=== PATIENT | male | born 1980 | race Caucasian/White ===

== ENCOUNTER 2019-02-26 22:05 | Emergency (ER) | payer BC ==
--- NOTE | 2019-02-26 22:35 | ERPHSYRPT ---
- History of Present Illness Time Seen by Provider: 02/26/19 22:27 Historian: patient Exam Limitations: no limitations Patient Subjective Stated Complaint: pt is alert and oriented. pt comes in with complaint of chest pressure. pt states his pressure started a couple hours ago while he was cooking dinner. pt states he has felt slightly nauseous. pt denies vomiting, lightheadedness, dizziness, diaphoresis, sob, or pain/pressure radiating anywhere. radial pulses strong and equal. pt skin pwd. no edema. normal sinus rhythm on the monitor. Triage Nursing Assessment: see above Physician History: 39-year-old white male with history of high blood pressure arrives with complaint of feeling pressure in his anterior chest pressure in his neck symptoms which occurred while he was cooking dinner approximately 2 hours ago. He states that he has no nausea no vomiting no shortness of breath. He states he took one full size baby aspirin. Past medical history includes high blood pressure past surgical history includes right rotator cuff surgery, left shoulder surgery social history occasional alcohol use. . Timing/Duration: today (2 hours prior to arrival) Activities at Onset: other (cooking dinner) Quality: pressure Location: substernal Chest Pain Radiation: neck Severity of Pain-Max: moderate Severity of Pain-Current: mild Modifying Factors: Improves With: nothing Associated Symptoms: No nausea, No vomiting, No palpitations, No heartburn, No abdominal pain, No shortness of breath, No hurts to breathe, No diaphoresis, No chills, No fever, No fatigue, No weakness, No swelling/lump in chest, No syncope , No rash, No headache, No dizziness, No edema, No back pain Prior Chest Pain/Cardiac Workup: no prior chest pain Nitro Today/Relief: no nitro taken today Aspirin Treatment Today: 325 mg x 1, provided at home Allergies/Adverse Reactions: No Known Drug Allergies Allergy (Unverified 02/26/19 22:16) Home Medications: Fluoxetine HCl 10 mg [Prozac 10 mg] 10 mg PO DAILY 02/26/19 [History] Phentermine HCl 37.5 mg PO DAILY 02/26/19 [History] Immunizations Up to Date: Yes - Review of Systems Constitutional: No Fever, No Chills Eyes: No Symptoms Ears, Nose, & Throat: No Symptoms Respiratory: No Cough, No Dyspnea Cardiac: Chest Pain (pressure and chestpressure in chest) Abdominal/Gastrointestinal: No Abdominal Pain, No Nausea, No Vomiting, No Diarrhea Genitourinary Symptoms: No Dysuria Musculoskeletal: No Back Pain, No Neck Pain Skin: No Rash Neurological: No Dizziness, No Focal Weakness, No Sensory Changes Psychological: No Symptoms Endocrine: No Symptoms All Other Systems: Reviewed and Negative - Past Medical History Pertinent Past Medical History: Yes Neurological History: No Pertinent History ENT History: No Pertinent History Cardiac History: Hypertension Respiratory History: No Pertinent History Endocrine Medical History: No Pertinent History Musculoskeletal History: No Pertinent History GI Medical History: No Pertinent History History: No Pertinent History Psycho-Social History: No Pertinent History Male Reproductive Disorders: No Pertinent History Other Medical History: stopped taking bp medicine 2 years ago 60mg propranolol - Past Surgical History Past Surgical History: Yes Neuro Surgical History: No Pertinent History Cardiac: No Pertinent History Respiratory: No Pertinent History Gastrointestinal: No Pertinent History Genitourinary: No Pertinent History Musculoskeletal: Orthopedic Surgery Male Surgical History: No Pertinent History Other Surgical History: right rotator cuff repair, left shoulder surgery. - Social History Smoking Status: Former smoker Drug Use: none - Nursing Vital Signs Nursing Vital Signs: Initial Vital Signs Temperature 97.8 F 02/26/19 22:07 Pulse Rate 97 H 02/26/19 22:07 Respiratory Rate 18 02/26/19 22:07 Blood Pressure 141/96 02/26/19 22:07 O2 Sat by Pulse Oximetry 98 02/26/19 22:07 Pain Scale Pain Intensity 4 - Physical Exam General Appearance: no apparent distress, alert Eye Exam: PERRL/EOMI, eyes nml inspection Ears, Nose, Throat Exam: normal ENT inspection, moist mucous membranes Neck Exam: normal inspection, non-tender, supple, full range of motion Respiratory Exam: normal breath sounds, lungs clear, No respiratory distress Cardiovascular Exam: regular rate/rhythm, normal heart sounds, capillary refill <2 sec Gastrointestinal/Abdomen Exam: soft, No tenderness, No mass Back Exam: normal inspection, No CVA tenderness, No vertebral tenderness Extremity Exam: normal inspection Neurologic Exam: alert, oriented x 3, cooperative, director of operations II-XII nml as tested, normal mood/affect, sensation nml, No motor deficits Skin Exam: normal color, warm, dry SpO2 Interpretation: normal (98%) SpO2: 98 - Course Nursing assessment & vital signs reviewed: Yes EKG Interpreted by Me: RATE (91 bpm), Sinus Rhythm, NORMAL AXIS, Other (EKG: Sinus rhythm, 91 bpm, normal axis, no acute ST or T wave changes, normal EKG) - Radiology Exams Chest X-ray Interpretation: Interpreted by me (chest x-ray: No acute disease process noted) Ordered Tests: Active Orders 24 hr Category Date Time Status Business Services Analyst STAT Care 02/26/19 22:31 Active EKG-ER Only STAT Care 02/26/19 22:30 Active IV Insertion STAT Care 02/26/19 22:30 Active Pulse Oximetry (ED) STAT Care 02/26/19 22:30 Active CHEST 1 VIEW (PORTABLE) Stat Exams 02/27/19 00:10 Taken AMYLASE Stat Lab 02/26/19 23:18 Completed CBC W DIFF Stat Lab 02/26/19 23:18 Completed CMP Stat Lab 02/26/19 23:18 Completed D-DIMER QUANTITATION Stat Lab 02/26/19 23:18 Completed LIPASE Stat Lab 02/26/19 23:18 Completed TROPONIN Q3H Lab 02/26/19 22:45 Completed TROPONIN Q3H Lab 02/27/19 01:54 Completed TROPONIN Q3H Lab 02/27/19 04:45 Ordered TROPONIN Q3H Lab 02/27/19 07:45 Ordered TROPONIN Q3H Lab 02/27/19 10:45 Ordered Lab/Rad Data: Laboratory Result Diagrams 02/26/19 23:18 02/26/19 23:18 Laboratory Results 02/27/19 02/26/19 02/26/19 Range/Units 01:54 23:18 23:18 WBC (4.0-10.5) K/mm3 RBC (4.1-5.6) M/mm3 Hgb (12.5-18.0) gm/dl Hct (42-50) % MCV (78-100) fl MCH (26-32) pg MCHC (32-36) g/dl RDW (11.5-14.0) % Plt Count (150-450) K/mm3 MPV (6-9.5) fl Gran % (36.0-66.0) % Eos # (Auto) (0-0.5) Absolute Lymphs (auto) (1.0-4.6) Absolute Monos (auto) (0.0-1.3) Lymphocytes % (24.0-44.0) % Monocytes % (0.0-12.0) % Eosinophils % (0.00-5.0) % Basophils % (0.0-0.4) % Absolute Granulocytes (1.4-6.9) Basophils # (0-0.4) D-Dimer 296 (215-500) ng/mL Sodium (137-145) mmol/L Potassium (3.5-5.1) mmol/L Chloride (98-107) mmol/L Carbon Dioxide (22-30) mmol/L Anion Gap (5-15) MEQ/L BUN (9-20) mg/dL Creatinine (0.66-1.25) mg/dL Estimated GFR ML/MIN Glucose (74-106) mg/dL Calcium (8.4-10.2) mg/dL Total Bilirubin (0.2-1.3) mg/dL AST (17-59) U/L ALT (0-50) U/L Alkaline Phosphatase (38-126) U/L Troponin I < 0.012 (0.000-0.034) ng/mL Serum Total Protein (6.3-8.2) g/dL Albumin (3.5-5.0) g/dL Amylase 82 (30-110) U/L Lipase 173 (23-300) U/L 02/26/19 02/26/19 02/26/19 Range/Units 23:18 23:18 22:45 WBC 8.3 (4.0-10.5) K/mm3 RBC 5.38 (4.1-5.6) M/mm3 Hgb 16.3 (12.5-18.0) gm/dl Hct 48.2 (42-50) % MCV 89.6 (78-100) fl MCH 30.2 (26-32) pg MCHC 33.8 (32-36) g/dl RDW 13.2 (11.5-14.0) % Plt Count 289 (150-450) K/mm3 MPV 8.7 (6-9.5) fl Gran % 50.2 (36.0-66.0) % Eos # (Auto) 0.25 (0-0.5) Absolute Lymphs (auto) 2.89 (1.0-4.6) Absolute Monos (auto) 0.94 (0.0-1.3) Lymphocytes % 34.9 (24.0-44.0) % Monocytes % 11.4 (0.0-12.0) % Eosinophils % 3.0 (0.00-5.0) % Basophils % 0.5 (0.0-0.4) % Absolute Granulocytes 4.15 (1.4-6.9) Basophils # 0.04 (0-0.4) D-Dimer (215-500) ng/mL Sodium 141 (137-145) mmol/L Potassium 3.8 (3.5-5.1) mmol/L Chloride 100 (98-107) mmol/L Carbon Dioxide 32 H (22-30) mmol/L Anion Gap 12.8 (5-15) MEQ/L BUN 15 (9-20) mg/dL Creatinine 0.83 (0.66-1.25) mg/dL Estimated GFR > 60.0 ML/MIN Glucose 98 (74-106) mg/dL Calcium 9.6 (8.4-10.2) mg/dL Total Bilirubin 0.50 (0.2-1.3) mg/dL AST 30 (17-59) U/L ALT 33 (0-50) U/L Alkaline Phosphatase 46 (38-126) U/L Troponin I < 0.012 (0.000-0.034) ng/mL Serum Total Protein 7.7 (6.3-8.2) g/dL Albumin 4.3 (3.5-5.0) g/dL Amylase (30-110) U/L Lipase (23-300) U/L - Progress Progress: improved Air Movement: fair Progress Note: 02/27/19 02:26 Patient in no distress at this time. Troponin are normal 2 chest x-ray within normal limits. Patient with normal EKG. Blood pressure markedly improved. Will discharge. - Departure Departure Disposition: Home Clinical Impression: Chest pain Qualifiers: Chest pain type: unspecified Qualified Code(s): R07.9 - Chest pain, unspecified Condition: Fair Critical Care Time: No Referrals: JERZY ENGEL MD [Primary Care Provider] - Additional Instructions: Return home, rest. Follow-up with your family doctor. Return for acute distress or for severe symptoms or for any problems.
[2019-02-26 23:19] LABS: ALBUMIN 4.3 g/dL (3.5-5.0); BLOOD UREA NITROGEN 15 mg/dL (9-20); CHLORIDE 100 mmol/L (98-107); Calcium 9.6 mg/dL (8.4-10.2); Carbon Dioxide 32 mmol/L (22-30); Creatinine 1 0.83 mg/dL (0.66-1.25); Glucose 98 mg/dL (74-106); Potassium 3.8 mmol/L (3.5-5.1); SODIUM 141 mmol/L (137-145); Total Protein 7.7 g/dL (6.3-8.2)
[2019-02-26 23:20] LABS: ALKALINE PHOSPHATASE 46 U/L (38-126); SGOT/AST 30 U/L (17-59); SGPT/ALT 33 U/L (0-50)
[2019-02-26 23:22] LABS: ANION GAP 12.8 MEQ/L (5-15)
[2019-02-26 23:23] LABS: AMYLASE 82 U/L (30-110); LIPASE 173 U/L (23-300)
[2019-02-26 23:25] LABS: Hematocrit 48.2 % (42-50); Hemoglobin 16.3 gm/dl (12.5-18.0); Mean Cell Volume 89.6 fl (78-100); Mean Corpuscular Hemoglobin 30.2 pg (26-32); Mean Corpuscular Hgb Concent. 33.8 g/dl (32-36); Red Blood Count 5.38 M/mm3 (4.1-5.6); Red Cell Distribution Width 13.2 % (11.5-14.0); White Blood Count 8.3 K/mm3 (4.0-10.5)
[2019-02-26 23:26] LABS: BASOPHIL % 0.5 % (0.0-0.4); Basophil (Absolute #) 0.04 (0-0.4); Eosinophil (Absolute #) 0.25 (0-0.5); Granulocyte Absolute (ANC) 4.15 (1.4-6.9); Granulocytes % 50.2 % (36.0-66.0); Lymphocyte (Absolute #) 2.89 (1.0-4.6); Lymphocytes % 34.9 % (24.0-44.0); Mean Platelet Volume 8.7 fl (6-9.5); Monocyte (Absolute #) 0.94 (0.0-1.3); Monocytes % 11.4 % (0.0-12.0); Platelet Count 289 K/mm3 (150-450)
[2019-02-27 02:37] VITALS: BP 109/84; PULSE 72; O2SAT 96
--- NOTE | 2019-02-27 08:04 | XRAY ---
Indication: Chest pain. Comparison: None Portable chest demonstrates normal heart, lungs, and bony thorax.
== END 2019-02-27 02:45 | disposition home or self-care (01) ==
LOC: ED 22:05
DX: R07.89 Other chest pain (principal); I10 Essential (primary) hypertension
CPT/HCPCS: 36000; 36415; 71045; 80053; 82150; 83690; 84484; 85025; 85379; 93005; 93041; 99284

== ENCOUNTER 2021-09-11 11:06 | Day surgery (SDC) | payer OTHER ==
[2021-09-11] MEDS ORDERED: Depo-Medrol 40 MG/ML IM ONE (11:07)
[2021-09-11] MEDS ORDERED: LIDOCAINE HCL 2% 100 MG/5 ML IJ ONE (11:07)
[2021-09-11] MEDS ORDERED: DIPRIVAN 200 MG/20 ML IV ONE ×2 (12:04→12:10)
[2021-09-11] MEDS ORDERED: Lactated Ringers 1,000 ML IV ONE (12:29)
--- NOTE | 2021-09-11 14:12 | XRAY ---
Indication: Bilateral L4-S1 MBB. Intraoperative fluoroscopy provided for 19 seconds. Single digital spot image submitted for interpretation demonstrates posterior needle tips projecting over the expected left and right L4-S1 nerve roots. Correlate with intraoperative findings/report.
--- NOTE | 2021-09-11 15:27 | XRAY ---
19 seconds fluoroscopy time in surgery for bilateral L4-S1 MBB.
== END 2021-09-11 12:30 | disposition home or self-care (01) ==
LOC: SDC-PAIN 11:06
PROVIDERS: ATTEND Psychiatry & Neurology Pain Medicine
DX: M47.816 Spondylosis without myelopathy or radiculopathy, lumbar region (principal); Z79.891 Long term (current) use of opiate analgesic
CPT/HCPCS: 64493; 64494; 72020; 77002; J1030; J2704

== ENCOUNTER 2022-05-07 12:08 | Day surgery (SDC) | payer OTHER ==
[2022-05-07] MEDS ORDERED: Marcaine Mpf 0.5% Vial 30 Ml IJ ONE (12:09)
[2022-05-07] MEDS ORDERED: DIPRIVAN 200 MG/20 ML IV ONE ×2 (14:37→14:50)
[2022-05-07] MEDS ORDERED: Xylocaine-Mpf 2% 5 Ml Vial ONE (14:37)
[2022-05-07] MEDS ORDERED: Lactated Ringers 1,000 ML IV ONE ×2 (14:39→16:27)
--- NOTE | 2022-05-07 15:17 | XRAY ---
Indication: Bilateral L4-S1 MBB. Intraoperative fluoroscopy provided for 21 seconds. Single digital spot image submitted for interpretation demonstrates posterior needle tips projecting over the expected left and right L4-S1 nerve roots. Correlate with intraoperative findings/report.
--- NOTE | 2022-05-07 16:34 | XRAY ---
21 seconds fluoroscopy time in surgery for bilateral L4-S1 MBB.
== END 2022-05-07 15:04 | disposition home or self-care (01) ==
LOC: SDC-PAIN 12:08
PROVIDERS: ATTEND Psychiatry & Neurology Pain Medicine
DX: M47.816 Spondylosis without myelopathy or radiculopathy, lumbar region (principal); I10 Essential (primary) hypertension; Z79.899 Other long term (current) drug therapy
CPT/HCPCS: 64493; 64494; 72020; 77002; J2704

== ENCOUNTER 2022-06-18 14:28 | Day surgery (SDC) | payer OTHER ==
[2022-06-18] MEDS ORDERED: Marcaine Mpf 0.5% Vial 30 Ml IJ ONE (14:29)
[2022-06-18] MEDS ORDERED: Depo-Medrol 40 MG/ML IM ONE (14:29)
[2022-06-18] MEDS ORDERED: DIPRIVAN 200 MG/20 ML IV ONE (15:41)
[2022-06-18] MEDS ORDERED: Lactated Ringers 1,000 ML IV ONE (15:58)
--- NOTE | 2022-06-18 17:29 | XRAY ---
Indication: Bilateral SI joint injection. Intraoperative fluoroscopy provided for 17 seconds. 4 digital spot image submitted for interpretation demonstrates posterior needle tip projecting over the left and right SI joints. Correlate with intraoperative findings/report.
--- NOTE | 2022-06-18 17:46 | XRAY ---
17 seconds fluoroscopy time in surgery for injections of both SI joints.
== END 2022-06-18 16:10 | disposition home or self-care (01) ==
LOC: SDC-PAIN 14:28
PROVIDERS: ATTEND Psychiatry & Neurology Pain Medicine
DX: M46.1 Sacroiliitis, not elsewhere classified (principal); Z79.899 Other long term (current) drug therapy
CPT/HCPCS: 27096; 72202; 77002; J1030; J2704; G0260

== ENCOUNTER 2022-08-27 11:43 | Day surgery (SDC) | payer OTHER ==
[2022-08-27] MEDS ORDERED: BUPIVACAINE 0.5% VIAL IJ ONE (11:44)
[2022-08-27] MEDS ORDERED: Depo-Medrol 40 MG/ML IM ONE (11:44)
[2022-08-27] MEDS ORDERED: DIPRIVAN 200 MG/20 ML IV ONE (12:51)
[2022-08-27] MEDS ORDERED: Lactated Ringers 1,000 ML IV ONE (13:36)
--- NOTE | 2022-08-27 14:22 | XRAY ---
9 seconds fluoroscopy time in surgery for bilateral L4-S1 MBB.
--- NOTE | 2022-08-27 14:26 | XRAY ---
Indication: Bilateral L4-S1 MBB. Intraoperative fluoroscopy provided for 9 seconds. Single digital spot image submitted for interpretation demonstrates posterior needle tips projecting over the expected left and right L4-S1 nerve roots. Correlate with intraoperative findings/report.
== END 2022-08-27 13:25 | disposition home or self-care (01) ==
LOC: SDC-PAIN 11:43
PROVIDERS: ATTEND Psychiatry & Neurology Pain Medicine
DX: M47.816 Spondylosis without myelopathy or radiculopathy, lumbar region (principal); Z79.899 Other long term (current) drug therapy
CPT/HCPCS: 64493; 64494; 72020; 77002; J1030; J2704

== ENCOUNTER 2022-10-08 07:42 | Day surgery (SDC) | payer OTHER ==
[2022-10-08] MEDS ORDERED: BUPIVACAINE 0.5% VIAL IJ ONE (07:43)
[2022-10-08] MEDS ORDERED: LIDOCAINE HCL 1% 50 MG/5 ML VL PF IJ ONE (07:43)
[2022-10-08] MEDS ORDERED: Depo-Medrol 40 MG/ML IM ONE (07:43)
[2022-10-08] MEDS ORDERED: Pepcid 20 MG VIAL IV ONE (08:04)
[2022-10-08] MEDS ORDERED: DIPRIVAN 200 MG/20 ML IV ONE ×2 (09:02→09:12)
[2022-10-08] MEDS ORDERED: Xylocaine-Mpf 2% 5 Ml Vial ONE (09:08)
--- NOTE | 2022-10-08 09:53 | XRAY ---
Indication: Left L4-S1 RFA. Intraoperative fluoroscopy provided for 33 seconds. 3 digital spot images submitted for interpretation demonstrate posterior needle tips projecting over the expected left L4-S1 nerve roots. Correlate with intraoperative findings/report.
--- NOTE | 2022-10-08 09:55 | XRAY ---
33 seconds fluoroscopy time in surgery for left L4-S1 RFA.
[2022-10-08] MEDS ORDERED: Lactated Ringers 1,000 ML IV ONE (10:22)
== END 2022-10-08 09:30 | disposition home or self-care (01) ==
LOC: SDC-PAIN 07:42
PROVIDERS: ATTEND Psychiatry & Neurology Pain Medicine
DX: M47.816 Spondylosis without myelopathy or radiculopathy, lumbar region (principal); Z79.899 Other long term (current) drug therapy
CPT/HCPCS: 64635; 64636; 72100; 77002; J1030; J2001; J2704

== ENCOUNTER 2022-10-15 07:51 | Day surgery (SDC) | payer OTHER ==
[2022-10-15] MEDS ORDERED: BUPIVACAINE 0.5% VIAL IJ ONE (07:52)
[2022-10-15] MEDS ORDERED: Depo-Medrol 40 MG/ML IM ONE (07:52)
[2022-10-15] MEDS ORDERED: LIDOCAINE HCL 1% 50 MG/5 ML VL PF IJ ONE (07:52)
[2022-10-15] MEDS ORDERED: Pepcid 20 MG VIAL IV ONE (08:49)
[2022-10-15] MEDS ORDERED: Reglan 10 MG/2 ML ONE (08:49)
[2022-10-15] MEDS ORDERED: DIPRIVAN 200 MG/20 ML IV ONE (09:11)
--- NOTE | 2022-10-15 10:30 | XRAY ---
Indication: Right L4-S1 RFA. Intraoperative fluoroscopy provided for 28 seconds. 5 digital spot image submitted for interpretation demonstrates posterior needle tips projecting over the expected right L4-S1 nerve roots. Correlate with intraoperative findings/report.
--- NOTE | 2022-10-15 10:46 | XRAY ---
28 seconds of fluoroscopy was used in surgery for a right L4-S1 RFA.
[2022-10-15] MEDS ORDERED: Lactated Ringers 1,000 ML IV ONE (12:49)
== END 2022-10-15 09:45 | disposition home or self-care (01) ==
LOC: SDC-PAIN 07:51
PROVIDERS: ATTEND Psychiatry & Neurology Pain Medicine
DX: M47.816 Spondylosis without myelopathy or radiculopathy, lumbar region (principal); Z79.899 Other long term (current) drug therapy
CPT/HCPCS: 64635; 64636; 72100; 77002; J1030; J2001; J2704

== ENCOUNTER 2022-12-03 19:00 | Emergency (ER) | payer OTHER ==
[2022-12-03 19:56] LABS: Absolute Neutrophil Ct (ANC) 3.83 x10^3/uL (1.4-6.9); BASOPHIL % 0.6 % (0.0-0.4); Basophil (Absolute #) 0.04 x10^3/uL (0-0.4); Eosinophil % 1.9 % (0.00-5.0); Eosinophil (Absolute #) 0.13 x10^3/uL (0-0.5); Hematocrit 42.5 % (42-50); Hemoglobin 14.2 g/dL (12.5-18.0); IMMATURE GRAN # 0.01 x10^3u/L (0.00-0.03); IMMATURE GRAN % 0.1 % (0.00-0.4); Lymphocyte (Absolute #) 2.25 x10^3/uL (1.0-4.6); Lymphocytes % 32.8 % (24.0-44.0); Mean Corpuscular Hemoglobin 29.4 pg (26-32); Mean Corpuscular Hgb Concent. 33.4 g/dL (32-36); Mean Platelet Volume 8.5 fL (7.5-11.0); Monocyte (Absolute #) 0.61 x10^3/uL (0.0-1.3); Monocytes % 8.9 % (0.0-12.0); Neutrophil % 55.7 % (36.0-66.0); Platelet Count 240 x10^3/uL (150-450); Red Blood Count 4.83 x10^6/uL (4.1-5.6); Red Cell Distribution Width 12.6 % (11.5-14.0); White Blood Count 6.9 x10^3/uL (4.0-10.5)
[2022-12-03 20:12] LABS: ALBUMIN 4.7 g/dL (3.5-5.0); ALKALINE PHOSPHATASE 43 U/L (38-126); ANION GAP 15.1 MEQ/L (5-15); BLOOD UREA NITROGEN 17 mg/dL (9-20); CHLORIDE 104 mmol/L (98-107); Carbon Dioxide 26 mmol/L (22-30); Creatinine 1 0.81 mg/dL (0.66-1.25); EST GLOMERULAR FILTRATION RATE > 60.0 ML/MIN; Glucose 101 mg/dL (74-106); Potassium 4.7 mmol/L (3.5-5.1); SGOT/AST 28 U/L (17-59); SGPT/ALT 32 U/L (0-50); SODIUM 140 mmol/L (137-145); Total Protein 7.5 g/dL (6.3-8.2)
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
[2022-12-03 21:14] VITALS: PULSE 73
[2022-12-03 22:09] VITALS: BP 132/83
[2022-12-03 22:50] VITALS: O2SAT 94
--- NOTE | 2022-12-04 08:42 | XRAY ---
Indication: Headache, nausea, dizziness, confusion, and blurred vision. Multiple contiguous axial images obtained through the head without contrast. Comparison: August 25, 2011. Normal appearing brain parenchyma, ventricles, and bony calvarium. Visualized paranasal sinuses and mastoid air cells are clear. Impression: Continued normal CT head without contrast exam.
== END 2022-12-03 22:55 | disposition home or self-care (01) ==
LOC: ED 19:00
DX: G43.909 Migraine, unspecified, not intractable, without status migrainosus (principal); R20.2 Paresthesia of skin; Z87.820 Personal history of traumatic brain injury; I10 Essential (primary) hypertension; Z79.891 Long term (current) use of opiate analgesic; Z79.899 Other long term (current) drug therapy
CPT/HCPCS: 36415; 70450; 80053; 85025; 99283

== ENCOUNTER 2023-05-11 08:58 | Emergency (ER) | payer OTHER ==
[2023-05-11] MEDS ORDERED: TORAdol 30 mg Injection IV ONE (09:13)
[2023-05-11] MEDS ORDERED: Sodium Chloride 0.9% 1000 ML 1,000 ML IV STA (09:14)
[2023-05-11] MEDS ORDERED: Sodium Chloride 0.9% 1000 ML 1,000 ML ONE (09:14)
[2023-05-11] MEDS ORDERED: TORAdol 30 mg Injection ONE (09:14)
[2023-05-11] MEDS ORDERED: Zofran 4 MG/2 ML VIAL ONE (09:14)
[2023-05-11] MEDS ORDERED: Zofran 4 MG/2 ML VIAL IV ONE (09:15)
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
--- NOTE | 2023-05-11 10:15 | XRAY ---
Indication: Left flank pain. Multiple contiguous axial images obtained through the abdomen and pelvis without contrast using renal stone protocol. Comparison: None Lung bases demonstrate dependent atelectasis. Heart not enlarged. Distal left ureter demonstrates 3 mm calculus just proximal to UVJ. Proximal left ureter prominent up to 8mm along with mild hydronephrosis and minimal renal edema consistent with obstructive uropathy. Left kidney demonstrates at least 2 additional punctate calculi. No free fluid/air. Stomach distended with food/fluid. Noncontrasted stomach and bowel loops appear nonobstructed. Gallbladder mildly distended without gallstones. Mild diffuse scattered colonic fecal debris throughout. Remaining liver, gallbladder, pancreas, spleen, adrenal glands, kidneys, ureters, bladder, and aorta are unremarkable for noncontrast exam. Osseous structures intact with minimal/mild degenerative changes throughout the thoracolumbar spine. Small fatty left inguinal hernia. Impression: 1. 3 mm distal left ureter calculus producing partial obstruction as detailed. Additional left renal punctate calculi. 2. Distended gallbladder in this postprandial patient better evaluated with sonogram if clinically warranted. 3. Incidental mild diffuse fecal stasis, degenerative spondylosis, and fatty left inguinal hernia.
[2023-05-11 11:47] LABS: Appearance Clear (Clear); Bacteria None Seen /HPF (None Seen); Bilirubin Negative (Negative); Blood Large (Negative); Epithelial Cells Rare /HPF (None Seen); Glucose, Urine Negative (Negative); Ketones Negative (Negative); Leukocyte Esterase Trace (Negative); Nitrite Negative (Negative); Ph 6.5 (4.6-8.0); Protein,Urine Dip Trace (Negative)
[2023-05-11 11:48] LABS: ADD URINE CULTURE? YES (NO)
[2023-05-11 11:52] VITALS: O2SAT 98
[2023-05-11 11:54] VITALS: BP 104/64; PULSE 76
== END 2023-05-11 12:01 | disposition home or self-care (01) ==
LOC: ED 08:58
DX: N20.1 Calculus of ureter (principal); R10.9 Unspecified abdominal pain; R11.0 Nausea; I10 Essential (primary) hypertension; Z79.899 Other long term (current) drug therapy
CPT/HCPCS: 36000; 74176; 81001; 87086; 96374; 96375; 99284; J1885; J2405

== ENCOUNTER 2023-07-06 18:21 | Emergency (ER) | payer OTHER ==
[2023-07-06] MEDS ORDERED: BENADRYL 50 MG/ML IM ONE (18:41)
[2023-07-06] MEDS ORDERED: Sodium Chloride 0.9% 1000 ML 1,000 ML IV STA (18:41)
[2023-07-06] MEDS ORDERED: TORAdol 30 mg Injection IM ONE (18:41)
[2023-07-06 18:42] VITALS: TEMP 98.2
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
[2023-07-06] MEDS ORDERED: BENADRYL 50 MG/ML ONE (19:10)
[2023-07-06] MEDS ORDERED: TORAdol 30 mg Injection ONE (19:10)
[2023-07-06 19:11] LABS: Absolute Neutrophil Ct (ANC) 3.42 x10^3/uL (1.4-6.9); Basophil (Absolute #) 0.07 x10^3/uL (0-0.4); Eosinophil % 2.8 % (0.00-5.0); Eosinophil (Absolute #) 0.19 x10^3/uL (0-0.5); Hematocrit 43.8 % (42-50); Hemoglobin 14.7 g/dL (12.5-18.0); IMMATURE GRAN # 0.02 x10^3u/L (0.00-0.03); IMMATURE GRAN % 0.3 % (0.00-0.4); Lymphocyte (Absolute #) 2.53 x10^3/uL (1.0-4.6); Lymphocytes % 37.9 % (24.0-44.0); Mean Cell Volume 87.6 fL (78-100); Mean Corpuscular Hemoglobin 29.4 pg (26-32); Mean Corpuscular Hgb Concent. 33.6 g/dL (32-36); Mean Platelet Volume 8.7 fL (7.5-11.0); Monocyte (Absolute #) 0.44 x10^3/uL (0.0-1.3); Monocytes % 6.6 % (0.0-12.0); Neutrophil % 51.4 % (36.0-66.0); Platelet Count 286 x10^3/uL (150-450); Red Cell Distribution Width 12.3 % (11.5-14.0); White Blood Count 6.7 x10^3/uL (4.0-10.5)
[2023-07-06 19:15] LABS: Appearance Clear (Clear); Bacteria None Seen /HPF (None Seen); Bilirubin Negative (Negative); Blood Negative (Negative); Epithelial Cells None Seen /HPF (None Seen); Glucose, Urine Negative (Negative); Hyaline Casts NONE SEEN /LPF (0-2); Ketones Negative (Negative); Leukocyte Esterase Negative (Negative); Nitrite Negative (Negative); Ph 6.5 (4.6-8.0); Protein,Urine Dip Negative (Negative); RBC 0-2 /HPF (0-5); Specific Gravity 1.015 (1.005-1.030); Urobilinogen 0.2 mg/dL (0.2); WBC 0-2 /HPF (0-5)
[2023-07-06 19:16] LABS: ADD URINE CULTURE? NO (NO)
--- NOTE | 2023-07-06 19:25 | XRAY ---
Indication: Headache and dizziness. Multiple contiguous axial images obtained through the head without contrast. Comparison: December 03, 2022 Normal appearing brain parenchyma, ventricles, and bony calvarium. Visualized paranasal sinuses and mastoid air cells are clear. Impression: Continued normal CT head without contrast exam.
[2023-07-06 19:26] LABS: ALBUMIN 4.6 g/dL (3.5-5.0); ALKALINE PHOSPHATASE 45 U/L (38-126); ANION GAP 15.1 MEQ/L (5-15); BLOOD UREA NITROGEN 14 mg/dL (9-20); CHLORIDE 104 mmol/L (98-107); Carbon Dioxide 24 mmol/L (22-30); Creatinine 1 0.67 mg/dL (0.66-1.25); EST GLOMERULAR FILTRATION RATE > 60.0 ML/MIN; Glucose 130 mg/dL (74-106); INR 0.89 (0.8-3.0); PROTIME 9.8 SECONDS (9.4-12.5); Potassium 3.7 mmol/L (3.5-5.1); SGOT/AST 33 U/L (17-59); SGPT/ALT 35 U/L (0-50); SODIUM 139 mmol/L (137-145); Total Protein 7.2 g/dL (6.3-8.2)
[2023-07-06 19:34] LABS: Erythrocyte Sedimentation Rate 5 mm/hr (0-15)
[2023-07-06 19:35] LABS: Amphetamine,Urine NEGATIVE (NEGATIVE); Barbiturate,Urine NEGATIVE (NEGATIVE); Benzodiazepine,Urine NEGATIVE (NEGATIVE); Cocaine,Urine NEGATIVE (NEGATIVE); Methadone,Urine NEGATIVE (NEGATIVE); Opiate,Urine NEGATIVE (NEGATIVE); PCP,Urine NEGATIVE (NEGATIVE); THC,Urine NEGATIVE (NEGATIVE)
[2023-07-06 20:39] VITALS: BP 103/63; PULSE 75; RESP 20; O2SAT 95
== END 2023-07-06 20:39 | disposition home or self-care (01) ==
LOC: ED 18:21
DX: R51.9 Headache, unspecified (principal); R20.2 Paresthesia of skin; R42 Dizziness and giddiness; Z87.820 Personal history of traumatic brain injury; I10 Essential (primary) hypertension; Z79.891 Long term (current) use of opiate analgesic; Z79.899 Other long term (current) drug therapy; Z72.0 Tobacco use
CPT/HCPCS: 36415; 70450; 80053; 80307; 81001; 83605; 85025; 85610; 85652; 96372; 99284; J1200; J1885

== ENCOUNTER 2023-10-11 13:57 | Emergency (ER) | payer OTHER, SELFPAY ==
[2023-10-11 14:19] VITALS: TEMP 97; O2SAT 95
[2023-10-11] MEDS ORDERED: Norflex 60 MG/2 ML IM ONE (14:42)
[2023-10-11] MEDS ORDERED: DECADRON 10MG INJ. IM ONE (14:42)
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
[2023-10-11] MEDS ORDERED: DECADRON 10MG INJ. ONE (15:01)
[2023-10-11] MEDS ORDERED: Norflex 60 MG/2 ML ONE (15:01)
[2023-10-11 16:23] VITALS: BP 120/81; PULSE 76; RESP 17
== END 2023-10-11 16:46 | disposition home or self-care (01) ==
LOC: ED 13:57
DX: M54.42 Lumbago with sciatica, left side (principal); I10 Essential (primary) hypertension; Z79.891 Long term (current) use of opiate analgesic; Z79.52 Long term (current) use of systemic steroids; Z79.899 Other long term (current) drug therapy
CPT/HCPCS: 96372; 99283; J1100; J2360

== ENCOUNTER 2024-03-09 12:11 | Day surgery (SDC) | payer OTHER ==
[2024-03-09] MEDS ORDERED: Sodium Chloride 0.9(Preservative Free) 10 ML IJ ONE (12:12)
[2024-03-09] MEDS ORDERED: Decadron 4 MG INJ IV ONE (12:12)
[2024-03-09] MEDS ORDERED: DIPRIVAN 200 MG/20 ML IV ONE (13:30)
[2024-03-09] MEDS ORDERED: Lactated Ringers 1,000 ML IV ONE (13:42)
--- NOTE | 2024-03-09 16:22 | XRAY ---
Indication: Left L4-S1 transforaminal ASHU. Intraoperative fluoroscopy provided for 28 seconds. 4 digital spot image submitted for interpretation demonstrates posterior needle tips projecting over the expected left and L4 and L5 nerve roots. Small amount of contrast injected for needle tip placement. Correlate with intraoperative findings/report.
--- NOTE | 2024-03-09 17:10 | XRAY ---
28 seconds of fluoroscopy was used in surgery for a left L4-S1 transforaminal ASHU.
== END 2024-03-09 14:15 | disposition home or self-care (01) ==
LOC: SDC-PAIN 12:11
PROVIDERS: ATTEND Psychiatry & Neurology Pain Medicine
DX: M54.16 Radiculopathy, lumbar region (principal)
CPT/HCPCS: 64483; 64484; 72100; 77003; J1100; J2704; Q9966

== ENCOUNTER 2024-09-20 18:25 | Observation (INO) | payer OTHER ==
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
[2024-09-20 19:14] LABS: Absolute Neutrophil Ct (ANC) 4.19 x10^3/uL (1.78-5.38); BASOPHIL % 0.6 % (0.2-1.2); Basophil (Absolute #) 0.04 x10^3/uL (0.01-0.08); Eosinophil % 1.4 % (0.8-7.0); Hematocrit 41.4 % (40.1-51.0); Hemoglobin 14.2 g/dL (13.7-17.5); IMMATURE GRAN # 0.02 x10^3u/L (0.001-0.031); IMMATURE GRAN % 0.3 % (0.001-0.429); Lymphocyte (Absolute #) 2.17 x10^3/uL (1.32-3.57); Lymphocytes % 30.5 % (21.8-53.1); Mean Cell Volume 86.1 fL (79.0-92.2); Mean Corpuscular Hemoglobin 29.5 pg (25.7-32.2); Mean Corpuscular Hgb Concent. 34.3 g/dL (32.3-36.5); Mean Platelet Volume 8.5 fL (9.4-12.4); Monocyte (Absolute #) 0.59 x10^3/uL (0.30-0.82); Monocytes % 8.3 % (5.3-12.2); Neutrophil % 58.9 % (34.0-67.9); Platelet Count 283 x10^3/uL (163-337); Red Blood Count 4.81 x10^6/uL (4.63-6.08); Red Cell Distribution Width 12.1 % (11.6-14.4); White Blood Count 7.1 x10^3/uL (4.23-9.07)
[2024-09-20 19:22] LABS: Appearance Clear (Clear); Bacteria None Seen /HPF (None Seen); Bilirubin Negative (Negative); Blood Negative (Negative); Epithelial Cells None Seen /HPF (None Seen); Glucose, Urine Negative (Negative); Hyaline Casts NONE SEEN /LPF (0-2); Ketones Negative (Negative); Leukocyte Esterase Negative (Negative); Nitrite Negative (Negative); Ph 6.5 (4.6-8.0); Protein,Urine Dip Negative (Negative); RBC 0-2 /HPF (0-5); Specific Gravity <=1.005 (1.005-1.030); Urobilinogen 0.2 mg/dL (0.2); WBC 0-2 /HPF (0-5)
[2024-09-20 19:28] LABS: ALBUMIN 4.7 g/dL (3.5-5.0); ANION GAP 15.5 MEQ/L (5-15); BILIRUBIN,TOTAL 0.7 mg/dL (0.2-1.3); Calcium 9.7 mg/dL (8.4-10.2); Creatinine 1 0.8 mg/dL (0.66-1.25); EST GLOMERULAR FILTRATION RATE 112.6 ML/MIN; Potassium 4.3 mmol/L (3.5-5.1); Total Protein 7.8 g/dL (6.3-8.2)
[2024-09-20 19:40] LABS: Amphetamine,Urine NEGATIVE (NEGATIVE); Barbiturate,Urine NEGATIVE (NEGATIVE); Benzodiazepine,Urine NEGATIVE (NEGATIVE); Cocaine,Urine NEGATIVE (NEGATIVE); Methadone,Urine NEGATIVE (NEGATIVE); Opiate,Urine NEGATIVE (NEGATIVE); PCP,Urine NEGATIVE (NEGATIVE); THC,Urine NEGATIVE (NEGATIVE)
[2024-09-20 19:54] LABS: NT PRO BNPII < 20.0 pg/mL (<300); TROPONIN < 0.012 ng/mL (0.000-0.033)
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
[2024-09-20] MEDS ORDERED: BABY ASPIRIN 81 MG CHEW ONE (21:40)
[2024-09-20] MEDS: NITRO-BID 2% UD PACKETS TOP ONE (21:41)
[2024-09-20] MEDS ORDERED: NITRO-BID 2% UD PACKETS ONE (21:41)
[2024-09-20] MEDS: BABY ASPIRIN 81 MG CHEW PO ONE (21:41)
[2024-09-21] MEDS: MORPHINE SULFATE 2 MG INJ IV PRN (03:10)
[2024-09-21 03:14] LABS: Absolute Neutrophil Ct (ANC) 4.45 x10^3/uL (1.78-5.38); BASOPHIL % 0.7 % (0.2-1.2); Basophil (Absolute #) 0.05 x10^3/uL (0.01-0.08); Eosinophil (Absolute #) 0.15 x10^3/uL (0.04-0.54); Hematocrit 41.5 % (40.1-51.0); Hemoglobin 14.3 g/dL (13.7-17.5); IMMATURE GRAN # 0.02 x10^3u/L (0.001-0.031); IMMATURE GRAN % 0.3 % (0.001-0.429); Lymphocyte (Absolute #) 2.32 x10^3/uL (1.32-3.57); Lymphocytes % 30.5 % (21.8-53.1); Mean Cell Volume 85.4 fL (79.0-92.2); Mean Corpuscular Hemoglobin 29.4 pg (25.7-32.2); Mean Corpuscular Hgb Concent. 34.5 g/dL (32.3-36.5); Mean Platelet Volume 8.6 fL (9.4-12.4); Monocyte (Absolute #) 0.61 x10^3/uL (0.30-0.82); Neutrophil % 58.5 % (34.0-67.9); Platelet Count 286 x10^3/uL (163-337); Red Blood Count 4.86 x10^6/uL (4.63-6.08); White Blood Count 7.6 x10^3/uL (4.23-9.07)
[2024-09-21 03:36] LABS: ALBUMIN 4.3 g/dL (3.5-5.0); ANION GAP 13.8 MEQ/L (5-15); BILIRUBIN,TOTAL 0.7 mg/dL (0.2-1.3); Calcium 9.9 mg/dL (8.4-10.2); Creatinine 1 0.78 mg/dL (0.66-1.25); EST GLOMERULAR FILTRATION RATE 113.5 ML/MIN; Potassium 4.1 mmol/L (3.5-5.1); Total Protein 6.9 g/dL (6.3-8.2)
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
--- NOTE | 2024-09-21 08:43 | XRAY ---
Indication: Chest pain. Elevated d-dimer. Pulmonary embolus. Multiple contiguous axial images obtained through the chest using 98 cc Isovue 370 contrast and PE protocol. Comparison: None Good opacification pulmonary arteries to includes the lobar and segmental branches. No pulmonary embolus. Heart not enlarged. Aorta is normal in course and caliber. No pathologic mediastinal/hilar lymphadenopathy. Lungs inflated and clear. Bony thorax intact. Limited upper abdomen demonstrates incidental fatty liver. Impression: Incidental fatty liver. Remaining CT chest pulmonary embolus exam is normal.
[2024-09-21] MEDS: PERCOCET TABLET 5/325MG PO PRN (09:33)
[2024-09-21] MEDS: Protonix 40MG Tablet PO SCH (09:34)
[2024-09-21] MEDS: Zestril 10 MG PO SCH (09:34)
[2024-09-21 11:54] VITALS: BP 111/59; PULSE 57; RESP 17; TEMP 98.3; O2SAT 94
== END 2024-09-21 12:45 | disposition home or self-care (01) ==
LOC: ED 18:25 → MED SURG 21:42
PROVIDERS: ADMIT Student in an Organized Health Care Education/Training Program; ATTEND Student in an Organized Health Care Education/Training Program
DX: R07.9 Chest pain, unspecified (principal); I10 Essential (primary) hypertension; M54.9 Dorsalgia, unspecified; K21.9 Gastro-esophageal reflux disease without esophagitis; Z87.820 Personal history of traumatic brain injury; Z79.899 Other long term (current) drug therapy
CPT/HCPCS: 36415; 71260; 80053; 80307; 81001; 83880; 84484; 85025; 85379; 93005; 93041; 93268; 93306; 94760; 99285; G0378; Q3014; J2270; A9270-GY